=== PATIENT | male | born 1980 | race Caucasian/White ===

== ENCOUNTER → 2017-05-07 | Emergency (ER) | payer BC ==
[~2017-05-07] VITALS: Ht 177.8 cm; Wt 99.8 kg
[~2017-05-07] MED LIST: DEXAMETHASONE SOD PHOSPHATE 10 MG/ML VIAL ONE; DEXAMETHASONE SOD PHOSPHATE 4 MG/ML VIAL IM ONE; HYDROCODONE/APAP 5/325MG 1 EACH TABLET ONE; HYDROCODONE/APAP 5/325MG 1 EACH TABLET PO ONE; KETOROLAC TROMETHAMINE INJ 30 MG/ML VIAL ONE; KETOROLAC TROMETHAMINE INJ 60 MG/2 ML VIAL IM ONE
[2017-05-07 17:03] VITALS: BP 131/99
== END | disposition home or self-care (01) ==
LOC: ER 16:21
DX: J06.9 Acute upper respiratory infection, unspecified (principal); M54.41 Lumbago with sciatica, right side
CPT/HCPCS: 96372 ×2; 99284; A4606; J1100; J1885; Z7610

== ENCOUNTER 2018-09-21 23:29 | Emergency (ER) | payer BC ==
[~2018-09-21] VITALS: Ht 180.3 cm; Wt 106.6 kg
--- NOTE | 2018-09-21 23:39 | NUR ---
URINE COLLECTED AND SENT TO LAB
--- NOTE | 2018-09-21 23:40 | NUR ---
BIB SELF WITH BROTHER. AAOX4. NAD. BREATHING EVEN AND UNLABORED. AMBULATORY. CAME IN W/ C/O NAUSEA, VOMITING, DIARRHEA X 24 HOURS. [facility] AT BEDSIDE FOR EVAL.
--- NOTE | 2018-09-21 23:40 | NUR ---
Note ling in ED - 09/22/18 at 0052 by FLACA BIB SELF WITH BROTHER. AAOX4. NAD. BREATHING EVEN AND UNLABORED. AMBULATORY. CAME IN W/ C/O ADOMINAL PAIN, VOMITING, DIARRHEA X 24 HOURS. [facility] AT BEDSIDE FOR EVAL.
[2018-09-21] MEDS ORDERED: ONDANSETRON HCL/PF 4 MG/2 ML VIAL ONE (23:59)
[2018-09-22] MEDS ORDERED: IV NS 0.9% 1,000 ML BAG IV ONE
[2018-09-22] MEDS ORDERED: ONDANSETRON HCL/PF 4 MG/2 ML VIAL IVP ONE
--- NOTE | 2018-09-22 00:10 | NUR ---
IV LINE OBTAINED ON L AC 20G. BLOOD DRAWN LAB AT BEDSIDE.
[2018-09-22 00:12] LABS: BASOPHILS % (AUTO) 0.5 % (0.0-2.0); EOSINOPHILS % (AUTO) 0.5 % (0.0-6.0); HEMATOCRIT 52 % (39-51); HEMOGLOBIN 17.6 g/dL (13.5-17.5); LYMPHOCYTES # (AUTO) 1.1 /CMM (0.8-4.8); LYMPHOCYTES % (AUTO) 12.6 % (20.0-44.0); MEAN CORPUSCULAR HGB CONC 34 g/dl (31.0-36.0); MEAN CORPUSCULAR VOLUME 88 fL (80-96); MONOCYTES % (AUTO) 11.2 % (2.0-12.0); NEUTROPHILS # (AUTO) 6.5 /CMM (1.8-8.9); NEUTROPHILS % (AUTO) 75.2 % (43.0-81.0); PLATELET COUNT (AUTO) 236 /CMM (150-450); RED BLOOD CELL COUNT(AUTO) 5.89 MIL/uL (4.5-6.0); WHITE BLOOD COUNT (AUTO) 8.7 K/uL (4.3-11.0)
[2018-09-22 00:18] LABS: CALCIUM, SERUM 8.5 mg/dL (8.5-10.1); CREATININE 1.3 mg/dL (0.6-1.3)
[2018-09-22 00:24] LABS: ALBUMIN 3.8 g/dL (3.4-5.0); BILIRUBIN,DIRECT 0.1 mg/dL (0.0-0.2); BILIRUBIN,TOTAL 0.5 mg/dL (0.2-1.0); TOTAL PROTEIN, SERUM 7.4 g/dL (6.4-8.2)
--- NOTE | 2018-09-22 01:07 | NUR ---
Patient discharged to home in stable condition. Written and verbal after care instructions given. Patient verbalizes understanding of instruction.
[2018-09-22 01:10] VITALS: BP 137/80
== END 2018-09-22 01:08 | disposition home or self-care (01) ==
LOC: ER 23:31
DX: R11.2 Nausea with vomiting, unspecified (principal); R19.7 Diarrhea, unspecified; F17.200 Nicotine dependence, unspecified, uncomplicated
CPT/HCPCS: 36415; 80048; 80076; 83690; 85025; 96361; 96374; 99283; J2405; J7030